=== PATIENT | female | born 1950 | race Caucasian/White ===

== ENCOUNTER 2016-11-21 13:10 | Outpatient (CLI) | payer MEDICARE ==
--- NOTE | 2016-11-21 16:04 | NM ---
NUCLEAR MEDICINE MUGA SCAN: RADIOPHARMACEUTICAL: 28.3 mCi of Technetium 99m tagged RBC IV. COMPARISON: No prior comparison. CLINICAL HISTORY: Malignant neoplasm of upper outer quadrant of right female breast. FINDINGS: Scintigraphic imaging of the cardiac chambers reveals a left ventricular ejection fraction of 58.9%. The left ventricular contractility is demonstrated between diastolic and systolic imaging. IMPRESSION: Calculated left ventricular ejection fraction of 58.9%. POS: [place]
[2016-11-21] MEDS ORDERED: Heparin 1,000 UNITS/ML VIAL ONE (16:27)
== END 2016-11-21 13:11 | disposition home or self-care (01) ==
LOC: NM 13:10
PROVIDERS: ATTEND Internal Medicine Medical Oncology
DX: Z51.11 Encounter for antineoplastic chemotherapy (principal); C50.411 Malignant neoplasm of upper-outer quadrant of right female breast
CPT/HCPCS: 78472; A9604; J1644

== ENCOUNTER 2017-01-18 14:09 | Day surgery (SDC) | payer MEDICARE ==
[2017-01-18] MEDS ORDERED: Acetaminophen 500 MG TAB PO SCH (14:30)
[2017-01-18] MEDS ORDERED: diphenhydrAMINE 25 MG CAP PO SCH (14:30)
[2017-01-18] MEDS ORDERED: Sodium Chloride 0.9% 20 ML ONE (14:52)
[2017-01-18 20:29] VITALS: BP 164/72; TEMP 97
[2017-01-18 21:05] LABS: Band 21 % (5-11); Hematocrit 30.9 % (36.0-47.0); Mean Platelet Volume 7.3 fL (7.4-10.4); Neutrophil 53 % (42-75); Red Blood Cell (RBC) Count 3.23 mill/uL (4.20-5.40); White Blood Cell (WBC) Count 20.3 thou/uL (4.8-10.8)
== END 2017-01-18 20:46 | disposition home or self-care (01) ==
LOC: ONC/OP 14:09
PROVIDERS: ATTEND Internal Medicine Medical Oncology
PROC: 30233N1 Transfusion of Nonautologous Red Blood Cells into Peripheral Vein, Percutaneous Approach (ICD-10-PCS; principal; 2017-01-18)
DX: D64.9 Anemia, unspecified (principal); C50.411 Malignant neoplasm of upper-outer quadrant of right female breast; Z88.8 Allergy status to other drugs, medicaments and biological substances
CPT/HCPCS: 36430; 80053; 82248; 83615; 84100; 84550; 85025; 86850; 86900; 86901; A4216; J1642; P9016

== ENCOUNTER 2017-02-07 11:59 | Day surgery (SDC) | payer MEDICARE ==
[2017-02-07] MEDS ORDERED: diphenhydrAMINE 25 MG CAP PO SCH (12:45)
[2017-02-07] MEDS ORDERED: Acetaminophen 500 MG TAB PO SCH (12:45)
[2017-02-07] MEDS ORDERED: Sodium Chloride 0.9% 20 ML ONE (12:51)
[2017-02-07 17:55] VITALS: BP 157/84; TEMP 98
[2017-02-07 19:16] LABS: Anisocytosis SLIGHT = 6-15 cells (100X) (0-5/hpf); Band 7 % (5-11); Hematocrit 29.6 % (36.0-47.0); Mean Platelet Volume 8.4 fL (7.4-10.4); Neutrophil 6 % (42-75); Red Blood Cell (RBC) Count 3.11 mill/uL (4.20-5.40); Toxic Granulation SLIGHT; White Blood Cell (WBC) Count 1.9 thou/uL (4.8-10.8)
== END 2017-02-07 17:55 | disposition home or self-care (01) ==
LOC: ONC/OP 11:59
PROVIDERS: ATTEND Internal Medicine Medical Oncology
PROC: 30233N1 Transfusion of Nonautologous Red Blood Cells into Peripheral Vein, Percutaneous Approach (ICD-10-PCS; principal; 2017-02-07)
DX: D64.9 Anemia, unspecified (principal); D69.59 Other secondary thrombocytopenia; C50.411 Malignant neoplasm of upper-outer quadrant of right female breast; Z88.8 Allergy status to other drugs, medicaments and biological substances
CPT/HCPCS: 36430; 85025; 86850; 86900; 86901; A4216; J1642; P9016

== ENCOUNTER 2017-02-23 17:22 | Inpatient (IN) | payer MEDICARE ==
[~2017-02-23 17:22] MED LIST: ISOVUE-370 76%-LOCM 1 ML ONE; Lidocaine 1% PF 5 ML VIAL ONE; PHENYLEPHRINE-NS 100 MCG/ML 10 ML SYRINGE ONE; Propofol 200 MG/20 ML VIAL ONE
[2017-02-23 18:26] LABS: Hemoglobin 6.2 g/dL (12.0-16.0); Mean Corpuscular HGB CONC 32.8 g/dL (32.0-36.0); Mean Corpuscular Hemoglobin 31.5 pg (27.0-31.0); Mean Corpuscular Volume 95.9 fl (81.0-99.0); Mean Platelet Volume 7.1 fL (7.4-10.4); Platelet Count 317 thou/uL (130-400); RBC Distribution Width 15.1 % (11.5-14.5); Red Blood Cell (RBC) Count 1.97 mill/uL (4.20-5.40); White Blood Cell (WBC) Count 47.6 thou/uL (4.8-10.8)
[2017-02-23 18:47] LABS: Anisocytosis SLIGHT = 6-15 cells (100X) (0-5/hpf); Band 2 % (5-11); Hypochromia SLIGHT = 6-15 cells (100X) (0-5/hpf); Lymphocytes 2 % (21-51); MDiff Complete? YES; Metamyelocyte 2 % (0-0); Monocytes 1 % (0-10); Myelocyte 1 % (0-0); Neutrophil 92 % (42-75); PLT Morphology Comment Appears Adequate
[2017-02-23 18:50] LABS: ALT (SGPT) 10 U/L (8-55); AST (SGOT) 20 U/L (5-34); Albumin 2.6 g/dL (3.4-4.8); Alkaline Phosphatase 88 U/L (40-150); Anion Gap 13 mmol/L (10-20); BUN (Urea Nitrogen) 53 mg/dL (9.8-20.1); Bilirubin, Total 0.3 mg/dL (0.2-1.2); Calc. Creatinine Clearance 0 mL/min (70-130); Calcium 6.8 mg/dL (7.8-10.44); Carbon Dioxide 22 mmol/L (23-31); Chloride 105 mmol/L (98-107); Estimated GFR-MDRD 53; Globulin 1.9 g/dL (2.4-3.5); Glucose 125 mg/dL (80-115); Lipase 8 U/L (8-78); Potassium 3.7 mmol/L (3.5-5.1); Protein, Total 4.5 g/dL (6.0-8.3); Sodium 136 mmol/L (136-145)
[2017-02-23] MEDS ORDERED: Vancomycin HCl 25 MG/ML Oral PO SCH (19:45)
[2017-02-23 19:52] LABS: CKMB 0.7 ng/mL (0-6.6); Troponin I Less than 0.010 ng/mL (< 0.028)
[2017-02-23] MEDS ORDERED: Lorazepam 2 MG/ML VIAL ONE (20:40)
[2017-02-23 20:55] LABS: Hemoglobin 5.5 g/dL (12.0-16.0); Mean Corpuscular Hemoglobin 31.3 pg (27.0-31.0); Mean Corpuscular Volume 94.8 fl (81.0-99.0); Mean Platelet Volume 7.3 fL (7.4-10.4); Platelet Count 260 thou/uL (130-400); Red Blood Cell (RBC) Count 1.75 mill/uL (4.20-5.40)
[2017-02-23 20:59] LABS: Band 10 % (5-11); Lymphocytes 3 % (21-51); MDiff Complete? YES; Metamyelocyte 1 % (0-0); Neutrophil 86 % (42-75); PLT Morphology Comment Appears Adequate; Toxic Granulation SLIGHT
[2017-02-23] MEDS ORDERED: Magnesium Sulfate 2 GM/NS 0.9% 50 ML BAG ONE (21:11)
[2017-02-23] MEDS ORDERED: Pantoprazole 40 MG VIAL ONE (21:11)
[2017-02-23] MEDS ORDERED: Calcium Gluc 4.6 MEQ/10 ML (100 MG/ML) ONE (21:11)
--- NOTE | 2017-02-23 21:50 | RAD ---
CHEST ONE VIEW 02/23/17 HISTORY: Blood in stool. COMPARISON: None. FINDINGS: Port-A-Cath is in place with the tip at the inferior SVC. The lungs are clear. No pneumothorax or eff usion. IMPRESSION: No acute intrathoracic abnormality. POS: [facility]
--- NOTE | 2017-02-23 21:54 | CT ---
CT ANGIOGRAM ABDOMEN AND PELVIS WITH CONTRAST: HISTORY: Colitis. COMPARISON: None. TECHNIQUE: CT angiogram abdomen and pelvis performed after the intravenous administration of contrast, with 3D r endering provided. FINDINGS: Mild atelectasis in the lung bases. No pericardial effusion. Along the lateral wall of the second portion of the duodenum there appears to be either an area of an giodysplasia or hemorrhage. Ingested debris is felt less likely, as this is along the nondependent w all. Calcified granulomas are present in the spleen. The liver and gallbladder appear unremarkable. There is unformed stool throughout the colon, suggesting diarrhea. There is mild submucosal edema of the transverse colon and ascending colon, suggesting colitis. No significant peripancreatic edema. No hydronephrosis. The superior mesenteric artery and the celiac trunk are both patent. There is focal saccular ectasia of the infrarenal abdominal aorta, which measures up to 2.5 cm in size, which is nearly completely t hrombosed. This only mildly narrows the [place] lumen. This is for a craniocaudad length of 2.5 cm. The iliac arteries are without aneurysm. Moderate facet arthropathy of the lower lumbar spine. No compression fracture. IMPRESSION: 1. Mild ascending and transverse colon colitis. 2. Focal infrarenal abdominal aortic ectasia, measuring up to 2.5 cm, with thrombosis of the ectatic component. No flow-limiting stenosis. 3. Likely focal area of angiodysplasia of the second portion of the duodenum, as there is a curvilin ear area of enhancement within the wall of the duodenum. Non emergent GI consultation and upper endoscopy may be helpful. POS: [facility]
[2017-02-23 22:17] LABS: Lactic Acid 2.4 mmol/L (0.5-2.2)
[2017-02-23 23:18] LABS: INR-International Normal Ratio 1.4; PTT 23.2 SEC (22.9-36.1); Prothrombin Time 17.8 SEC (12.0-14.7)
[2017-02-23] MEDS ORDERED: metroNIDAZOLE 500 MG in Premix Bag 1 BAG IVPB SCH (23:30)
[2017-02-23] MEDS ORDERED: Diprivan 60 ML ONE (23:53)
[2017-02-24] MEDS ORDERED: Fentanyl 100 MCG/2 ML VIAL ONE (00:50)
[2017-02-24 01:36] LABS: Mean Corpuscular HGB CONC 34.2 g/dL (32.0-36.0); Mean Corpuscular Hemoglobin 31.5 pg (27.0-31.0); Mean Platelet Volume 7.1 fL (7.4-10.4); Platelet Count 105 thou/uL (130-400); RBC Distribution Width 13.4 % (11.5-14.5); Red Blood Cell (RBC) Count 2.22 mill/uL (4.20-5.40); White Blood Cell (WBC) Count 22.8 thou/uL (4.8-10.8)
[2017-02-24 01:45] LABS: Band 20 % (5-11); Lymphocytes 2 % (21-51); MDiff Complete? YES; Metamyelocyte 2 % (0-0); Neutrophil 76 % (42-75); PLT Morphology Comment Appears Decreased
[2017-02-24] MEDS ORDERED: Morphine 4 MG/ML VIAL SLOW IVP PRN (03:20)
--- NOTE | 2017-02-24 03:45 | CON ---
DATE OF CONSULTATION: 02/23/2017 HISTORY OF PRESENT ILLNESS: The patient is a 67-year-old female who was diagnosed with barbara ast cancer several months ago and underwent a mastectomy. She recently started chemotherapy and was on her last cycle of chemotherapy and began having some mild blood per rectum. She denies any abdomi nal pain, nausea, vomiting. She denies any weight loss. In the ER, the patient had an episode of br adycardia and has received multiple units of blood. PAST MEDICAL HISTORY: Significant for mastectomy for breast cancer and ongoing chemotherapy. PAST SURGICAL HISTORY: Includes a hysterectomy. ALLERGIES: METAXALONE, SKELAXIN. HOME MEDICATIONS: Patient provided a list, on this list included diclofenac. SOCIAL HISTORY: She does not smoke or drink. FAMILY HISTORY: Negative. REVIEW OF SYSTEMS: Unobtainable. PHYSICAL EXAMINATION: GENERAL: Shows a pale white female in no acute distress. VITAL SIGNS: Stable. She is afebrile. HEENT: Unremarkable. NECK: Supple. CHEST: Clear. CARDIOVASCULAR: Regular rate and rhythm. ABDOMEN: Soft, nontender, without organomegaly or masses. Bowel sounds are present and normoactive. RECTAL: Deferred. EXTREMITIES: Normal. NEUROLOGIC: Nonfocal. LABORATORY: Shows a white blood cell count of 51.0, hemoglobin of 5.5, hematocrit of 16.6, hemoglobi n on 02/07/2017 showed a hemoglobin was 9.7, CO2 was 22, BUN 53, creatinine 1.03, glucose 125, calciu m 6.8, total protein 4.5, albumin 2.6. CTA was done and showed mild ascending and transverse colon c olitis, focal infrarenal abdominal aortic ectasia measuring 2.5 cm with some thrombosis, likely focal area of angiodysplasias of the second portion of the duodenum as there is curvilinear area of enhanc ement within the wall of the duodenum. ASSESSMENT: 1. Upper gastrointestinal bleed - suspect diclofenac related ulcer. 2. Breast cancer, undergoing chemotherapy. 3. Anemia secondary to gastrointestinal blood loss. RECOMMENDATIONS: 1. Serial H&H. 2. IV PPI. 3. Emergent EGD.
[2017-02-24] MEDS ORDERED: Acetaminophen 650 MG Suppository PR PRN (03:49)
[2017-02-24] MEDS ORDERED: Acetaminophen 325 MG TAB PO PRN (03:49)
[2017-02-24] MEDS: Morphine 4 MG/ML VIAL SLOW IVP PRN ×3 (04:03→12:13)
[2017-02-24] MEDS: Sodium Chloride 0.9% 1,000 ML IV SCH ×2 (04:33→19:03)
--- NOTE | 2017-02-24 04:37 | OP ---
PREOPERATIVE DIAGNOSIS: Gastrointestinal bleeding. PROCEDURE: After informed consent was obtained, the patient was placed in the left lateral decubitus position. Anesthesia was administered per the Anesthesia Department. Forward-viewing endoscope was inserted into the esophagus under direct visualization with ease and passed to the second portion of the duodenum with ease. Second portion of the duodenum was normal. At the junctions of the first a nd second portion of the duodenum, active bleeding area was noted. The exact area that was bleeding could not be elucidated, but there was brisk bright red blood. This re-accumulated on aspiration, th e therapeutic gastroscope was tried, the colonoscope was tried, all without success. Initially on lo oking at the duodenal bulb, there was an ulcer. This ulcer had no visible vessels or active bleeding . The pylorus, antrum, body, fundus, and cardia were normal. Retroflexion in the stomach was normal . The esophagus was normal throughout. ASSESSMENT: 1. Actively bleeding area at the junction of the first and second portion of the duodenum, most like ly ulcer. 2. Otherwise normal esophagogastroduodenoscopy. RECOMMENDATION: Surgical opinion.
[2017-02-24 05:19] LABS: Hemoglobin 9.8 g/dL (12.0-16.0)
[2017-02-24 05:21] LABS: Hemoglobin 9.8 g/dL (12.0-16.0)
--- NOTE | 2017-02-24 05:24 | HP ---
PRIMARY CARE PHYSICIAN: zEe López M.D. CHIEF COMPLAINT: Bloody stools. HISTORY OF PRESENT ILLNESS: Ms. Elias is a pleasant 67-year-old lady, who was seen at [facility] on 02/24/2017, following surgery. She is currently sleepy but arousable, unable to provide any history or review of systems. History was obtained from discussion with the emergency room physician as well as review of medical records. She presented to the emergency room yesterday, complaining of diarrhea, weakness , and dizziness that started one hour prior to her arrival at the emergency room. She also reported blood in her stool. She did not have any fever. She is a chemotherapy patient, last chemotherapy 3 days ago. She reports nausea after getting chemotherapy. She also had on and off diarrhea after starting chemo. She was hospitalized around [facility] in 2017 for kidney infection. REVIEW OF SYSTEMS: Could not be completed because of the patient's current sedated status. PAST MEDICAL HISTORY: Significant for breast cancer, dyslipidemia, and possible coronary artery disease. PAST SURGICAL HISTORY: Significant for right lumpectomy, decompression of syrinx x2 and hysterectomy. PSYCHIATRIC HISTORY: Significant for anxiety and depression. SOCIAL HISTORY: No history of tobacco use, alcohol use or recreational drug use. FAMILY HISTORY: Could not be obtained due to sedated status. CODE STATUS: I could not discuss her code status because of her sedated status. This will need to be addressed in the morning. ALLERGIES: SKELAXIN and METAXALONE. CURRENT MEDICATIONS: Atorvastatin 10 mg daily, baclofen 10 mg daily, carvedilol 3.125 mg two times a day, levothyroxine 137 mcg daily, Lexapro 10 mg daily, potassium chloride 20 mEq daily. PHYSICAL EXAMINATION: GENERAL: Ms. Elias is sleeping but arousable. VITAL SIGNS: Blood pressure is 163/90, pulse is 99. She is breathing at rate of 31, and saturating 96% on room air. EYES: No scleral icterus, conjunctival pallor present. ENT: Moist mucosal membranes, no oropharyngeal erythema or exudates. NECK: Supple, nontender, trachea is midline. RESPIRATORY: Accessory muscles of breathing are not active. Chest wall movements are symmetric bilaterally. LUNGS: Clear to auscultation without wheeze, rhonchi, or crepitations. CARDIOVASCULAR: S1 and S2 are heard, tachycardic and regular. Peripheral pulses are palpable. No carotid bruit, no pericardial rub. ABDOMEN: Soft, dressings over surgical sites, surgical drain present. No hepatomegaly, no splenomegaly, sluggish bowel sounds. NEUROLOGIC: Full neurologic examination not possible secondary to the patient' s non-cooperation. Pupils equal and reactive to light. No facial droop. Deep tendon reflexes are 2+, plantar reflexes downgoing bilaterally. PSYCHIATRIC: Normal mood, oriented to person, unable to assess orientation to place or time. SKIN: No rashes or subcutaneous nodules. She has a chemotherapy port over the right chest wall. LYMPHATIC: No cervical lymphadenopathy. LABORATORY DATA AND IMAGING: Ms. Elias labs and investigations were reviewed. I reviewed her electrocardiogram, which showed normal sinus rhythm, no ST changes, suggestion acute coronary syndrome, this electrocardiogram was from yesterday evening. Currently, court monitor shows sinus tachycardia. I also reviewed her chest x-ray, which did not show any pulmonary infiltrates. She had CT angiogram of the abdomen and pelvis, which showed mild ascending and transverse colon colitis, focal intrarenal abdominal aortic ectasia, likely focal area of angiodysplasia of the second portion of the duodenum. Laboratory investigation show white count of 22,800, decreased from 47,600 yesterday, hemoglobin 7.0, up from 5.5 yesterday; platelet count 105,000, down from 260,000 yesterday, INR 1.4, lactic acid 2.4, decreased from 3.3 yesterday, normal sodium, normal potassium, elevated blood urine nitrogen of 53, normal creatinine, normal phosphorous, decreased albumin of 2.6, normal lipase, normal corrected calcium for albumin of 7.9 and normal troponin I. ASSESSMENT AND PLAN: Ms. Elias is a 67-year-old lady, who was seen at [facility] on 02/24/2017. Her problem list includes: 1. Gastrointestinal bleed: Ms. Elias was taken for emergency surgery for repair of duodenal ulcer in the second part of duodenum. She is now being admitted to critical care unit for further management. She has received 6 units of packed red blood cells and 5 units of fresh frozen plasma. We will monitor in the CCU for now. We will recheck her hemoglobin. 2. Leukocytosis: Etiology is unclear, white count is trending down now. We will recheck CBC. 3. Anemia of acute blood loss: As mentioned, she has received 6 units of packed red blood cells. We will check hemoglobin level. 4. Thrombocytopenia: Platelet count was normal yesterday, but appears to be trending down. We will repeat platelet count. 5. Breast cancer: Given her history of chemotherapy as well as blood count abnormalities, we will consult Oncology service for opinion and help with management. Many thanks for allowing me to participate in your patient's care. Please feel free to contact me with any questions or concerns. LEVEL OF RISK: High. LEVEL OF COMPLEXITY: High. MTDD
[2017-02-24] MEDS: Acetaminophen 1,000 MG in Premix Bag 1 BAG IVPB SCH ×4 (07:38→23:35)
[2017-02-24 08:11] LABS: Anion Gap 11 mmol/L (10-20); BUN (Urea Nitrogen) 32 mg/dL (9.8-20.1); Calc. Creatinine Clearance 62 mL/min (70-130); Calcium 6.4 mg/dL (7.8-10.44); Carbon Dioxide 21 mmol/L (23-31); Chloride 108 mmol/L (98-107); Estimated GFR-MDRD 65; Glucose 123 mg/dL (80-115); Magnesium 1.3 mg/dL (1.6-2.6); Phosphorus 2.3 mg/dL (2.3-4.7); Potassium 3.6 mmol/L (3.5-5.1); Sodium 136 mmol/L (136-145)
--- NOTE | 2017-02-24 08:56 | RAD ---
FRONTAL VIEW ABDOMEN: INDICATION: Feeding tube placement. FINDINGS: There is an enteric catheter which traverses to the medial left mid abdomen. An additional feeding t ube with distal metallic stylette is seen with metallic stylette overlying the midline low abdomen. Catheter tubing overlies the right abdomen from a right lateral approach, incompletely visualized. T here is air distention of the bowel. IMPRESSION: Enteric catheters, as above, as well as overlying tubing at the right abdomen. POS: [facility]
[2017-02-24] MEDS ORDERED: Prevnar 13-Val Conj/PF 0.5 ML SYRINGE IM ONE (09:00)
[2017-02-24] MEDS ORDERED: FLU VACC TS2017-18 (>65YR) 0.5 ML SYRINGE IM ONE (09:00)
[2017-02-24] MEDS ORDERED: Lidocaine 1% PF 5 ML VIAL ONE (09:17)
[2017-02-24] MEDS ORDERED: Propofol 200 MG/20 ML VIAL ONE (09:17)
[2017-02-24] MEDS ORDERED: Succinylcholine Chloride 20 MG/ML 10 ml SYRINGE FS ONE (09:17)
[2017-02-24] MEDS ORDERED: Dexamethasone 20 MG/5 ML VIAL ONE (09:17)
[2017-02-24] MEDS ORDERED: PHENYLEPHRINE-NS 100 MCG/ML 10 ML SYRINGE ONE (09:17)
[2017-02-24] MEDS ORDERED: Glycopyrrolate 0.2 MG/ML 5 ML SYRINGE ONE (09:17)
[2017-02-24 09:31] LABS: Band 15 % (5-11); Lymphocytes 6 % (21-51); MDiff Complete? YES; Mean Corpuscular HGB CONC 33.7 g/dL (32.0-36.0); Mean Corpuscular Hemoglobin 31.2 pg (27.0-31.0); Mean Corpuscular Volume 92.6 fl (81.0-99.0); Mean Platelet Volume 7.9 fL (7.4-10.4); Metamyelocyte 6 % (0-0); Monocytes 1 % (0-10); Neutrophil 72 % (42-75); PLT Morphology Comment Appears Decreased; Platelet Count 95 thou/uL (130-400); RBC Distribution Width 13.2 % (11.5-14.5); Red Blood Cell (RBC) Count 3.18 mill/uL (4.20-5.40); White Blood Cell (WBC) Count 20.1 thou/uL (4.8-10.8)
[2017-02-24] MEDS: Pantoprazole 80 MG in Sodium Chloride 0.9% 100 ML IVP SCH (12:18)
--- NOTE | 2017-02-24 13:51 | PDOC.EVN ---
Event Note - Event Note Event Note: Patient seen and examined, family at bedside, states she is not having any more bleeding for now. Will monitor closely in ICU for now and make medical changes as appropriate.
[2017-02-24] MEDS ORDERED: HYDROmorphone 10 mg/100 ml CADD IVPB PRN (15:29)
[2017-02-24] MEDS ORDERED: diphenhydrAMINE 25 MG CAP PO PRN (15:29)
[2017-02-24] MEDS ORDERED: diphenhydrAMINE 50 MG/ML VIAL IVP PRN (15:29)
[2017-02-24] MEDS ORDERED: diphenhydrAMINE 50 MG/ML VIAL IM PRN (15:29)
[2017-02-24] MEDS ORDERED: Naloxone HCl 0.4 mg/ml Vial IV PRN (15:29)
[2017-02-24] MEDS ORDERED: Promethazine HCl 25 MG/ML VIAL IM PRN (15:29)
[2017-02-24] MEDS ORDERED: Zolpidem Tartrate 5 MG TAB PO PRN (15:29)
[2017-02-24] MEDS ORDERED: Ondansetron HCl/PF 4 MG/2 ML Vial IVP PRN (15:29)
[2017-02-24] MEDS ORDERED: Communication Order-Pharmacy FS SCH (15:30)
--- NOTE | 2017-02-24 15:53 | EKG ---
Test Reason : Blood Pressure : / mmHG Vent. Rate : 088 BPM Atrial Rate : 088 BPM P-R Int : 110 ms QRS Dur : 100 ms QT Int : 376 ms P-R-T Axes : 021 -19 055 degrees QTc Int : 454 ms Sinus rhythm with short [place] Minimal voltage criteria for LVH, may be normal variant Borderline ECG Confirmed by VALERIE SALVADOR ([id number]), editorial writer LILIANA LEVIN ([id number]) on 02/24/2017 3:53:18 PM Referred By: Confirmed By:VALERIE SALVADOR
--- NOTE | 2017-02-24 16:16 | CON ---
DATE OF CONSULTATION: 02/24/2017 REASON FOR CONSULTATION: History of HER2-positive breast cancer. HISTORY OF PRESENT ILLNESS: The patient is a 67-year-old woman known to our group with a history of T2 N0 M0 estrogen and progesterone receptor negative, HER-2 positive stage 2A invasive ductal carcino ma for which she underwent lumpectomy and node sampling in the fall. She has now completed 5 cycles of TCH chemotherapy, the most recent cycle delivered on 02/21/2017. She has had some gastrointestina l complications, primarily diarrhea and nausea, during her postoperative adjuvant chemotherapy, but n o history of a definite gastrointestinal bleeding. On the day of admission, she developed some dark stools and marked dizziness, prompting emergency room visit. She was found to be experiencing upper gastrointestinal hemorrhage and an upper gastrointestinal endoscopy performed by Dr. Morgan johnson rmed a bleeding duodenal ulcer. Endoscopic cautery was not able to stop the bleeding and, therefore, she went to urgent exploratory laparotomy performed by Dr. Velarde. She is now doing well. A bleedin g duodenal ulcer was oversewn. She is hemodynamically stable. I am asked to provide my recommendati ons regarding the breast malignancy. ALLERGIES: She describes sensitivity to Skelaxin. MEDICATIONS: She is on diclofenac, levothyroxine, Lexapro, Lomotil, promethazine, potassium, Coreg, atorvastatin, and baclofen. PAST MEDICAL HISTORY: There is a history of rheumatoid arthritis for which she has taken Orencia in the past. There is also history of depression, hypothyroidism, and question of syringomyelia. PAST SURGICAL HISTORY: The patient underwent the right breast partial mastectomy in 10/2016. She sneed d coronary artery catheterization in 03/2016. She has syringomyelia decompression surgery x2 in the past. She has undergone bladder suspension and MALACHI-BSO in 1976. FAMILY HISTORY: There is a history of lung cancer in her mother. A brother had a history of colon c ancer. PERSONAL AND SOCIAL HISTORY: Patient has 2 children and is , living locally. A daughter is i nvolved with her care as well. She has never smoked and does not drink excessively. 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 She has had no occupational exposure. REVIEW OF SYSTEMS: Except as mentioned in the history of present illness, she denies significant car diopulmonary, GI, , musculoskeletal, or neurological complaints. PHYSICAL EXAMINATION: VITAL SIGNS: Temperature 97.8, pulse 95 and regular, respirations 16, blood pressure 140/82. GENERAL: The patient is a well-developed and well-nourished woman in no acute distress. She is aler t, oriented, and cooperative. She is appropriate in conversation and in good spirits. HEENT: The extraocular movements are intact. Pupils equal, round, and reactive to light. NECK: Supple. LUNGS: Clear. CARDIOVASCULAR: Regular rate and rhythm without murmur, rub, gallop or click. ABDOMEN: No tenderness, organomegaly, masses, bruits or ascites. EXTREMITIES: No clubbing, cyanosis or edema. SKIN: Normal. LYMPH: No adenopathy. MUSCULOSKELETAL: No arthritis. NEUROLOGIC: No focal findings. Cranial nerves II-XII grossly intact. LABORATORY: White blood cell count 20.1 with 72 neutrophils, 15 bands. The hemoglobin is 9.[address] atelet count 95,000. Chemistries show sodium 136, potassium 3.6, chloride 108, and bicarbonate 21. The creatinine is 0.86 and BUN 32. A random blood sugar is 123. The albumin is 2.6, but liver funct ion is otherwise normal. IMPRESSION: 1. Upper gastrointestinal hemorrhage secondary to bleeding duodenal ulcer, status post exploratory l aparotomy. 2. T2 N0 M0, ER/WV negative, HER-2 positive breast cancer status post 5 cycles of TCH chemotherapy, the most recent cycle being delivered on 02/21/2017 with Neulasta support. RECOMMENDATIONS: Certainly, postoperative care needs to continue without regard to her history of br east cancer. Her breast malignancy has an excellent prognosis. She did receive Neulasta support and , therefore, the white blood cell count may remain elevated despite there being no evidence of infect ion. I do not expect his platelet count get dangerously low, but we will monitor the platelet count as chemotherapy was delivered only 3 days previously. Thanks very much for allowing me to provide my recommendations. We will follow with you.
--- NOTE | 2017-02-24 18:51 | OP ---
DATE OF PROCEDURE: 02/24/2017 PREOPERATIVE DIAGNOSIS: Bleeding duodenal ulcer. POSTOPERATIVE DIAGNOSIS: Bleeding duodenal ulcer involving the second portion of the duodenum. OPERATIONS PERFORMED: 1. Exploratory laparotomy. 2. Oversew of bleeding duodenal ulcer. 3. Placement of feeding nasojejunal tube. SURGEON: Juan C Velarde D.O. ANESTHESIA: General endotracheal. ESTIMATED BLOOD LOSS: 250 mL. FLUIDS GIVEN: 1000 mL crystalloids, 3 units of fresh-frozen plasma, 1 unit of platelets, and 1 unit packed red blood cell. SPONGE AND INSTRUMENT COUNT: Certified as correct x2. COMPLICATIONS: None apparent at time of operation. INDICATIONS FOR OPERATION: This is a 67-year-old woman who presented with acute hemorrhagic shock se condary to upper gastrointestinal hemorrhage. The patient underwent an EGD finding bleeding source, which appears to involve the second portion of the duodenum. The ulcer base itself was not visualize d by the Endoscopist. Pulsatile blood is noted; however, the patient is requiring a massive transfus ion protocol in place. Decision is made therefore to bring the patient to the operating room emergen tly for exploration. Findings are consistent with bleeding duodenal ulcer in the anterior aspect of the second portion of the duodenum. DESCRIPTION OF OPERATION: Informed consent obtained from the patient's daughter. Patient was velia t to the operating room and placed in supine position. Following general anesthesia, Willis catheter was inserted and placed to bedside drain. Nasogastric tube was inserted and placed to wall suction. Abdomen is sterilely prepped and draped in the usual fashion. A supraumbilical midline incision was made using #10 scalpel. Incision was carried through subcutaneous tissues maintaining hemostasis us ing thermocautery. Fascia is incised along the line of the incision using cautery exposing the perit oneum beneath, which is grasped x2 with hemostasis. Peritoneal cavity was sharply entered using Monroe enbaum scissors. Incision was then extended superiorly and inferiorly. Bookwalter retractor was put in place to gain exposure. The stomach was evaluated and it was not filled with blood. The previous nasogastric tube was palpated within the gastric lumen. We quickly run the small bowel from the Lig ament of Treitz down to terminal ileum. It was evident that the bleeding source was proximal. The r ight colon was mobilized medially to allow access to the second portion of the duodenum. I then made a vertical incision over the anterior aspect of the duodenum proximal to the junction of the first p ortion and second portion of the duodenum. This was accomplished using cautery. Large amount of arely ts was readily evacuated. A pulsatile bleed is noted in the anterior medial aspect of incision. Thi s was secured using one [id number] stitch of 2-0 Silk. The duodenal lumen was then evacuated of blood. I placed a lip of inside the lumen and observed this for few minutes. No further acti ve bleeding was noted. At this juncture, a feeding nasojejunal tube was inserted by Anesthesia, tip of which was palpated by myself within the gastric lumen. I then manipulated the tip of this cathete r into proximal small bowel without resistance. Finding no other pathology, exploration is terminate d. The duodenotomy is closed in two layers. The inner layer was closed horizontally using interrupt ed sutures of 3-0 Silk in a modified fashion. The suture line was then imbricated using interr upted sutures of 3-0 Silk in a Lembert fashion. Abdomen was copiously irrigated, cleared with saline solution. A lip of omentum was mobilized and secured repair using interrupted sutures of 3-0 Silk. A #19 Sean drain was introduced through the peritoneal cavity, tip of this was placed in a subhepat ic space adjacent to the repair. This was allowed to exit the abdominal cavity through a separate st ab incision. The drain was secure to intraabdominal wall using 2-0 Silk suture. All sponge and inst ruments were removed and accounted for. Small bowel was returned to normal anatomic location. Oment um was drawn over the remainder of the viscera. Fascia is approximated in midline using running stit ch of #1 single stranded PDS. Subcutaneous tissue is irrigated clear with saline solution perfecting hemostasis using thermocautery. The skin incision is closed using smitha. Sterile dressing was ap plied. The patient tolerated this operation without any apparent complication and was returned to [facility] intensive care unit in critical, but stable condition.
--- NOTE | 2017-02-24 18:58 | PRG ---
DATE OF SERVICE: 02/24/2017 SUBJECTIVE: She is doing well. She is feeling good. She states her bed is comfortable. She is sor e from her surgery. OBJECTIVE: VITAL SIGNS: Temperature is 97.8, pulse 90, blood pressure 142/81, respiratory rate 13. CHEST: Clear. CARDIOVASCULAR: Regular rate and rhythm. ABDOMEN: Bandaged and tender. EXTREMITIES: Normal. LABORATORY DATA: Shows a white blood cell count of 20.1, hemoglobin 9.8, hematocrit 28.9, platelet c ount 95,000. Chemistries significant for chloride 108, CO2 21, BUN 32, glucose 123, calcium 64, tota l bilirubin 1.3. ASSESSMENT: 1. Upper gastrointestinal bleed secondary to duodenal ulcer, not amenable to endoscopic treatment. 2. Anemia secondary to gastrointestinal blood loss. 3. Breast cancer, undergoing chemotherapy. RECOMMENDATIONS: 1. Continue PPI. 2. Serial H&H. 3. Begin diet per deferred to surgery.
--- NOTE | 2017-02-24 23:45 | PRG ---
DATE OF SERVICE: 02/24/2017 SUBJECTIVE: Gerry Elias is a 67-year-old female postop day 0, status post exploratory laparotomy in oversewing of bleeding duodenal ulcer as well as placement of nasojejunal tube. Patient has remai beti hemodynamically stable throughout the course of the day. Her H&H appears to have stabilized. Ronn corrales denies any flatus or bowel movement at this time. She is tolerating tube feeds. 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 Pain has improved since that time. She was e valuated by Dr. Velarde this evening. She vocalized no further complaints. OBJECTIVE: VITAL SIGNS: Reviewed and stable. Patient is afebrile. Resting in bed in no acute distress. NG tu be is in place. Breathing is nonlabored. ABDOMEN: Soft and appropriate and with generalized tenderness. There are no signs of guarding, rigi dity, or peritonitis. NEUROLOGIC: No focal deficit is noted. ASSESSMENT: Acute blood loss anemia secondary to bleeding ulcer. PLAN: Transfer patient to general surgical floor. Continue tube feeds as ordered. Await return of bowel function. Care is otherwise ordered. Continue to monitor.
[2017-02-25] MEDS: Pantoprazole 80 MG in Sodium Chloride 0.9% 100 ML IVP SCH ×3 (01:48→22:36)
[2017-02-25 06:21] LABS: Anion Gap 6 mmol/L (10-20); BUN (Urea Nitrogen) 19 mg/dL (9.8-20.1); Calc. Creatinine Clearance 65 mL/min (70-130); Calcium 6.9 mg/dL (7.8-10.44); Carbon Dioxide 28 mmol/L (23-31); Chloride 106 mmol/L (98-107); Estimated GFR-MDRD 75; Glucose 86 mg/dL (80-115); Potassium 3.3 mmol/L (3.5-5.1); Sodium 137 mmol/L (136-145)
[2017-02-25] MEDS: Acetaminophen 1,000 MG in Premix Bag 1 BAG IVPB SCH (06:31)
[2017-02-25 06:33] LABS: Band 11 % (5-11); Hemoglobin 8.4 g/dL (12.0-16.0); Lymphocytes 4 % (21-51); MDiff Complete? YES; Mean Corpuscular HGB CONC 33.8 g/dL (32.0-36.0); Mean Corpuscular Hemoglobin 31.4 pg (27.0-31.0); Mean Corpuscular Volume 92.8 fl (81.0-99.0); Mean Platelet Volume 8.2 fL (7.4-10.4); Metamyelocyte 6 % (0-0); Monocytes 2 % (0-10); Neutrophil 77 % (42-75); PLT Morphology Comment Appears Decreased; Platelet Count 64 thou/uL (130-400); RBC Distribution Width 13.7 % (11.5-14.5); Red Blood Cell (RBC) Count 2.69 mill/uL (4.20-5.40); White Blood Cell (WBC) Count 13.1 thou/uL (4.8-10.8)
[2017-02-25] MEDS: Sodium Chloride 0.9% 1,000 ML IV SCH ×3 (06:58→21:16)
--- NOTE | 2017-02-25 11:13 | PRG ---
DATE OF SERVICE: 02/25/2017 SUBJECTIVE: The patient is feeling about the same as yesterday. She is having some abdominal sorene ss. She is having no nausea or vomiting. She is not having any flatus or bowel movements. OBJECTIVE: VITAL SIGNS: Temperature 97.9, pulse 83, respiratory rate 19, blood pressure 95/65. CHEST: Clear. CARDIOVASCULAR: Regular rate and rhythm. ABDOMEN: Tender diffusely. LABORATORY DATA: Shows potassium of 3.3, calcium 6.9, white blood cell count 13.1, hemoglobin of 8.4 , hematocrit 24.9, platelet count is 64,000. ASSESSMENT: 1. Anemia secondary to gastrointestinal blood loss. 2. Thrombocytopenia - consumption. 3. Duodenal ulcer, not amenable to endoscopic therapy, status post surgical intervention. RECOMMENDATIONS: 1. Continue to monitor H&H. 2. Continue Protonix drip.
--- NOTE | 2017-02-25 13:11 | PDOC.PN ---
- Subjective Encounter Start Date: 02/25/17 Encounter Start Time: 13:09 Patient seen and examined, no family at bedside, patient states her pain is better now, no other complaints. All questions answered. - Objective Vital Signs & Weight: Vital Signs (12 hours) Temp Pulse Resp BP Pulse Ox 02/25/17 12:00 97.9 F 72 19 118/72 99 02/25/17 08:00 97.9 F 83 19 95/65 100 02/25/17 04:44 97.9 F 70 16 126/77 99 Weight Admit Weight 141 lb 9.808 oz Weight 129 lb 3.054 oz Most Recent Monitor Data Heart Rate from ECG 70 NIBP 140/74 NIBP BP-Mean 116 Respiration from ECG 12 SpO2 100 I&O: 02/24/17 02/25/17 02/26/17 06:59 06:59 06:59 Intake Total 260 1124.2 Output Total 975 2540 Balance -715 -1415.8 Result Diagrams: 02/25/17 05:38 02/25/17 05:38 Phys Exam - Physical Examination Constitutional: NAD HEENT: PERRLA, moist MMs, sclera anicteric NG tube in place Neck: no nodes, no JVD, supple Respiratory: no wheezing, no rales, no rhonchi Cardiovascular: RRR, no significant murmur Gastrointestinal: soft, non-tender surgicla site C/D/I Musculoskeletal: no edema, pulses present Neurological: non-focal, normal sensation Psychiatric: normal affect, A&O x 3 Dx/Plan (1) Bleeding duodenal ulcer Code(s): K26.4 - CHRONIC OR UNSPECIFIED DUODENAL ULCER WITH HEMORRHAGE Status : Acute (2) S/P exploratory laparotomy Status: Acute (3) Abdominal pain Code(s): R10.9 - UNSPECIFIED ABDOMINAL PAIN Status: Acute (4) Anemia Code(s): D64.9 - ANEMIA, UNSPECIFIED Status: Acute - Plan * s/p ex lap, surgery following * cont tube feeds via NG tube * Hgb stable for now * monitor for GI bleeding * vital signs stable * case and plan d/w patient at length, she understands and agrees with this plan
--- NOTE | 2017-02-25 17:05 | PRG ---
DATE OF SERVICE: 02/25/2017 SUBJECTIVE: Ms. Elias is a 67-year-old woman who is postoperative day #1 status post exploratory l aparotomy and oversew of bleeding duodenal ulcer. The patient is awake and alert on my evaluation. She reports adequate pain control. She denies any dyspnea or syncope. She has had no bloody bowel m ovements overnight. OBJECTIVE: VITAL SIGNS: This morning includes blood pressure 126/77, pulse 70, respirations 16, temperature 98. 2 degrees Fahrenheit, oxygen saturation is 99% on room air. HEENT: Reveals normocephalic and atraumatic. HEART: Reveals regular rate and rhythm. No murmurs or gallops auscultated. LUNGS: Clear to auscultation bilaterally. CARDIOVASCULAR: Breathing is regular and unlabored. ABDOMEN: Soft. Incision intact with incisional tenderness present. No gross rebound tenderness pre sent. Yrn-Montoya drain returns 170 mL of serosanguineous fluid over the last 24 hours. NEUROLOGIC: Reveals no focal deficits present. LABORATORY DATA: Pertinent laboratory findings today includes CBC with 13,100 white blood cells, hem oglobin and hematocrit stable at 8.4 and 24.9 respectively, platelet count is 64,000. Note, the usman ent has not received any blood transfusion since surgery. Metabolic profile today includes a sodium of 137, potassium is 3.3, chloride is 106, bicarbonate 28, BUN 19, creatinine 0.76, glucose 86. IMPRESSION: 1. Postoperative day #1 status post exploratory laparotomy with oversew of bleeding duodenal ulcer. 2. Acute blood loss anemia, stable. No clinical evidence of ongoing hemorrhage. PLAN: Increase activity as tolerated. The patient may be allowed to take some clear liquid diet onc e she starts to pass flatus indicating return of bowel function. The above findings and plan discussed with the patient who indicates understanding of information giv en. I have answered her questions.
--- NOTE | 2017-02-25 23:42 | PRG ---
DATE OF SERVICE: 02/25/2017 SUBJECTIVE: Olive Elias is a 67-year-old female status post operative repair of bleeding ulcer. T he patient has not yet had return of bowel function. Tube feeds were increased earlier today. The p atient denies any nausea or vomiting. She does admit to some anxiety. Otherwise, no complaints. OBJECTIVE: VITAL SIGNS: Reviewed and stable. GENERAL: The patient is afebrile, resting in bed, in no acute distress. LUNGS: Breathing is nonlabored. ABDOMEN: Soft, nontender, nondistended. No signs of peritonitis. ASSESSMENT AND PLAN: As documented in daily progress note. Continue care as ordered. Continue to m onitor.
[2017-02-26 07:28] LABS: Hemoglobin 9.2 g/dL (12.0-16.0); Mean Corpuscular HGB CONC 34.5 g/dL (32.0-36.0); Mean Corpuscular Hemoglobin 31.9 pg (27.0-31.0); Mean Corpuscular Volume 92.5 fl (81.0-99.0); Mean Platelet Volume 8.7 fL (7.4-10.4); Platelet Count 65 thou/uL (130-400); RBC Distribution Width 13.5 % (11.5-14.5); Red Blood Cell (RBC) Count 2.89 mill/uL (4.20-5.40); White Blood Cell (WBC) Count 5.7 thou/uL (4.8-10.8)
[2017-02-26 08:12] LABS: Band 32 % (5-11); Eosinophils 1 % (0-10); Lymphocytes 15 % (21-51); MDiff Complete? YES; Metamyelocyte 1 % (0-0); Monocytes 1 % (0-10); Neutrophil 48 % (42-75); PLT Morphology Comment Appears Decreased; Reactive Lymphocytes 2 % (0-10); Toxic Granulation SLIGHT
[2017-02-26 10:15] LABS: Phosphorus 1.8 mg/dL (2.3-4.7)
[2017-02-26] MEDS ORDERED: Magnesium Sulfate 4 GM in Sodium Chloride 0.9% 250 ML 250 ML IVPB SCH (12:00)
[2017-02-26] MEDS ORDERED: Potassium Phosphate 30 MMOL in Sodium Chloride 0.9% 250 ML 250 ML IVPB SCH (12:00)
--- NOTE | 2017-02-26 12:07 | PDOC.PN ---
- Subjective Encounter Start Date: 02/26/17 Encounter Start Time: 08:10 -: old records requested/rev Patient seen and examined. No new complaints. No overnight events - Objective Resuscitation Status: Resuscitation Status FULL:Full Resuscitation MAR Reviewed: Yes Vital Signs & Weight: Vital Signs (12 hours) Temp Pulse Resp BP Pulse Ox 02/26/17 08:00 97.6 F 95 20 124/80 97 02/26/17 04:00 98.3 F 92 16 141/85 H 95 02/26/17 00:56 95 Weight Admit Weight 141 lb 9.808 oz Weight 129 lb 3.054 oz Most Recent Monitor Data Heart Rate from ECG 70 NIBP 140/74 NIBP BP-Mean 116 Respiration from ECG 12 SpO2 100 I&O: 02/25/17 02/26/17 02/27/17 06:59 06:59 06:59 Intake Total 1124.2 2375 Output Total 2540 880 Balance -1415.8 1495 Result Diagrams: 02/26/17 06:15 02/25/17 05:38 Phys Exam - Physical Examination Constitutional: NAD HEENT: PERRLA, moist MMs, sclera anicteric dubhuff tube+ Neck: no JVD, supple Respiratory: no wheezing, no rales, no rhonchi Cardiovascular: RRR, no significant murmur, no rub Gastrointestinal: soft, non-tender, no distention, positive bowel sounds surgical site with dressing Musculoskeletal: no edema, pulses present Neurological: non-focal, normal sensation, moves all 4 limbs Lymphatic: no nodes Psychiatric: normal affect, A&O x 3 Skin: no rash, normal turgor Dx/Plan (1) Abdominal pain Code(s): R10.9 - UNSPECIFIED ABDOMINAL PAIN Status: Resolved (2) Anemia due to acute blood loss Code(s): D62 - ACUTE POSTHEMORRHAGIC ANEMIA Status: Acute (3) Bleeding duodenal ulcer Code(s): K26.4 - CHRONIC OR UNSPECIFIED DUODENAL ULCER WITH HEMORRHAGE Status : Acute Comment: s/p surgicla repair (4) Hypomagnesemia Code(s): E83.42 - HYPOMAGNESEMIA Status: Acute (5) Ileus following gastrointestinal surgery Code(s): K91.30 - POSTPROC INTESTINAL OBST, UNSP TO PARTIAL VERSUS COMPLETE Status: Acute (6) Lactic acidosis Code(s): E87.2 - ACIDOSIS Status: Acute (7) S/P exploratory laparotomy Status: Acute (8) Thrombocytopenia Code(s): D69.6 - THROMBOCYTOPENIA, UNSPECIFIED Status: Acute (9) Anxiety and depression Code(s): F41.8 - OTHER SPECIFIED ANXIETY DISORDERS Status: Chronic (10) Dyslipidemia Code(s): E78.5 - HYPERLIPIDEMIA, UNSPECIFIED Status: Chronic (11) H/O malignant neoplasm of breast Code(s): Z85.3 - PERSONAL HISTORY OF MALIGNANT NEOPLASM OF BREAST Status: Chronic (12) Hypothyroidism Code(s): E03.9 - HYPOTHYROIDISM, UNSPECIFIED Status: Chronic (13) NSAID long-term use Code(s): Z79.1 - FDC (CURRENT) USE OF NON-STEROIDAL NON-INFLAM (NSAID) Status: Chronic (14) Neutrophilic leukemoid reaction Code(s): D72.823 - LEUKEMOID REACTION Status: Resolved Comment: due to nulesta - Plan cont current plan of care, plan discussed w/ family * continue tube feeding as tolerated * continue [employer] * continue IV protonix * await GI function to return * continue post operative care * medication reviewed as below * symptomatic treatment. Review of Systems - Review of Systems ENT: negative: Ear Pain, Ear Discharge, Nose Pain, Nose Discharge, Nose Congestion, Mouth Pain, Mouth Swelling, Throat Pain, Throat Swelling, Other Respiratory: negative: Cough, Dry, Shortness of Breath, Hemoptysis, SOB with Excertion, Pleuritic Pain, Sputum, Wheezing Cardiovascular: negative: chest pain, palpitations, orthopnea, paroxysmal nocturnal dyspnea, edema, light headedness, other Gastrointestinal: negative: Nausea, Vomiting, Abdominal Pain, Diarrhea, Constipation, Melena, Hematochezia, Other Genitourinary: negative: Dysuria, Frequency, Incontinence, Hematuria, Retention , Other Musculoskeletal: negative: Neck Pain, Shoulder Pain, Arm Pain, Back Pain, Hand Pain, Leg Pain, Foot Pain, Other Skin: negative: Rash, Lesions, Montrell, Bruising, Other - Medications/Allergies Allergies/Adverse Reactions: Allergies Allergy/AdvReac Type Severity Reaction Status Date / Time metaxalone [From Skelaxin] Allergy Verified 02/24/17 04:25 Medications: Current Medications Acetaminophen (Tylenol) 650 mg PO Q4H PRN PRN Reason: Headache/Fever or Pain Diphenhydramine HCl (Benadryl) 25 mg IVP Q3H PRN PRN Reason: Itching Diphenhydramine HCl (Benadryl) 25 mg PO Q3H PRN PRN Reason: Itching Diphenhydramine HCl (Benadryl) 25 mg IM Q3H PRN PRN Reason: Itching Hydromorphone HCl (Dilaudid Cadd) 0 mg IVPB INF PRN PRN Reason: Pain Last Admin: 02/24/17 17:13 Dose: 10 mg Pantoprazole Sodium 80 mg/ (Sodium Chloride) 100 mls @ 10 mls/hr IVP INF ROBBIE Last Admin: 02/25/17 22:36 Dose: 100 mls Sodium Chloride (Normal Saline 0.9%) 1,000 mls @ 50 mls/hr IV .Q20H ROBBIE Last Admin: 02/25/17 21:16 Dose: 1,000 mls Magnesium Sulfate 4 gm/ Sodium (Chloride) 258 mls @ 86 mls/hr IVPB NOW ROBBIE Stop: 02/26/17 16:00 Potassium Phosphate 30 mmol/ (Sodium Chloride) 260 mls @ 62.5 mls/hr IVPB NOW ROBBIE Stop: 02/26/17 17:00 Naloxone HCl (Narcan) 0.2 mg IV Q5MIN PRN PRN Reason: Opiate Reversal Ondansetron HCl (Zofran) 4 mg IVP Q6H PRN PRN Reason: Nausea/Vomiting Last Admin: 02/25/17 15:55 Dose: 4 mg Promethazine HCl (Phenergan) 12.5 mg IM Q4H PRN PRN Reason: Nausea/Vomiting Zolpidem Tartrate (Ambien) 5 mg PO HSPRN PRN PRN Reason: Insomnia
--- NOTE | 2017-02-26 12:46 | PRG ---
DATE OF SERVICE: 02/26/2017 SUBJECTIVE: The patient is feeling better. She is still having no flatus or bowel movements. She i s having some abdominal pain. She is having no nausea and vomiting. She is anxious to get up and wa lk and she is presently waiting for physical therapy. OBJECTIVE: VITAL SIGNS: Temperature 97.6, pulse 95, respiratory rate 20, blood pressure 124/80. CHEST: Clear. CARDIOVASCULAR: Regular rate and rhythm. ABDOMEN: Tender. She has a bandage to abdomen. LABORATORY DATA: Show white blood cell count of 57, hemoglobin 9.2, and hematocrit 26.7. ASSESSMENT: 1. Duodenal ulcer. 2. Upper gastrointestinal bleed. 3. Anemia secondary to upper gastrointestinal bleed. RECOMMENDATIONS: 1. Continue postop management. 2. Continue Protonix. 3. No NSAIDs. 4. We will follow at a distance.
--- NOTE | 2017-02-26 17:22 | PRG ---
DATE OF SERVICE: 02/26/2017 SUBJECTIVE: The patient is postop day #2 status post exploratory laparotomy and oversew of bleeding duodenal ulcer. The patient had no issues overnight. She remains n.p.o. with the exception of some ice chips and has tube feeds running at 20 mL per hour. The patient states that her pain is controll ed and she has been out of bed to be in the chair and she could ambulate back and forth to the restro om. Unfortunately, she has not passed any flatus. The patient states that her pain is controlled. PHYSICAL EXAMINATION: VITAL SIGNS: Temperature is 97.6, heart rate 95, blood pressure 124/80, respirations 20, oxygen satu ration 97% on room air. HEENT: Unremarkable. LUNGS: Clear to auscultation bilaterally. HEART: Regular rate and rhythm. ABDOMEN: Soft with clean, dry, and intact dressing. She has minimal tenderness. FERNANDO drain has put o ut a total of 115 mL of serosanguineous fluid over the past 24 hours. Bowel sounds are hypoactive. EXTREMITIES: Neurovascularly intact x4. LABORATORY DATA AND IMAGING DATA: White blood cell count 5.7, hemoglobin 9.2, hematocrit 26.7, and p latelets 65. Magnesium 1.0, phosphorus 1.8. The remainder of her basic metabolic panel is not back. There are no radiographs to review this morning. ASSESSMENT AND PLAN: 1. Status post exploratory laparotomy with oversew of bleeding ulcer. 2. Acute blood loss anemia, which is stable. Plan will be to continue to increase her activity, riley it bowel function return. With the hypoactive bowel sounds, we believe this may be relatively soon. Otherwise, we will continue supportive care as previous.
--- NOTE | 2017-02-26 21:37 | PRG ---
DATE OF SERVICE: 02/26/2017 SUBJECTIVE: Olive Elias is a 67-year-old female status post repair of duodenal ulcer bleeding, had an exploratory laparotomy. Patient is currently awaiting return of bowel function. She is n.p.o. w ith ice chips. She vocalizes no complaints upon my evaluation. OBJECTIVE: VITAL SIGNS: Reviewed and stable. GENERAL: Sitting in chair, out of bed. LUNGS: Breathing is nonlabored. ABDOMEN: Soft with mild generalized tenderness. No guarding, rigidity, or signs of peritonitis. ASSESSMENT AND PLAN: As documented in daily progress note. Continue care as ordered. Continue to m onitor. Await return of bowel function.
[2017-02-27] MEDS: Pantoprazole 80 MG in Sodium Chloride 0.9% 100 ML IVP SCH (05:28)
[2017-02-27 06:48] LABS: Hemoglobin 8.7 g/dL (12.0-16.0); Mean Corpuscular HGB CONC 34.1 g/dL (32.0-36.0); Mean Corpuscular Hemoglobin 31.7 pg (27.0-31.0); Mean Platelet Volume 8.8 fL (7.4-10.4); Platelet Count 50 thou/uL (130-400); RBC Distribution Width 13.5 % (11.5-14.5); Red Blood Cell (RBC) Count 2.73 mill/uL (4.20-5.40); White Blood Cell (WBC) Count 2.8 thou/uL (4.8-10.8)
[2017-02-27 07:15] LABS: ALT (SGPT) 17 U/L (8-55); AST (SGOT) 27 U/L (5-34); Albumin 3.2 g/dL (3.4-4.8); Alkaline Phosphatase 71 U/L (40-150); Anion Gap 10 mmol/L (10-20); BUN (Urea Nitrogen) 18 mg/dL (9.8-20.1); Bilirubin, Total 0.8 mg/dL (0.2-1.2); Calc. Creatinine Clearance 68 mL/min (70-130); Calcium 8.4 mg/dL (7.8-10.44); Carbon Dioxide 26 mmol/L (23-31); Chloride 105 mmol/L (98-107); Estimated GFR-MDRD 80; Globulin 2.2 g/dL (2.4-3.5); Glucose 119 mg/dL (80-115); Magnesium 1.8 mg/dL (1.6-2.6); Phosphorus 3.3 mg/dL (2.3-4.7); Protein, Total 5.4 g/dL (6.0-8.3); Sodium 138 mmol/L (136-145)
[2017-02-27] MEDS: Sodium Chloride 0.9% 1,000 ML IV SCH (07:20)
[2017-02-27 07:39] LABS: Band 23 % (5-11); Dohle Bodies SLIGHT; Lymphocytes 23 % (21-51); MDiff Complete? YES; Monocytes 8 % (0-10); Neutrophil 46 % (42-75); Nucleated RBC 2 % (0); PLT Morphology Comment Appears Decreased; Polychromasia SLIGHT = 2-3 cells (100X) (0-2/hpf)
[2017-02-27] MEDS ORDERED: Potassium Chloride 20 MEQ/100 ML PREMIX BAG IVPB SCH (07:45)
[2017-02-27] MEDS ORDERED: Magnesium Sulfate 4 GM, Potassium Chloride 40 MEQ in Sodium Chloride 0.9% 250 ML 250 ML IVPB SCH (08:15)
[2017-02-27] MEDS ORDERED: traMADol HCl 50 MG TAB PO PRN (10:04)
--- NOTE | 2017-02-27 10:28 | PDOC.PN ---
- Subjective Encounter Start Date: 02/27/17 Encounter Start Time: 08:15 Patient seen and examined. No new complaints. No overnight events pt is passing gas, pain controlled - Objective Resuscitation Status: Resuscitation Status FULL:Full Resuscitation MAR Reviewed: Yes Vital Signs & Weight: Vital Signs (12 hours) Temp Pulse Resp BP Pulse Ox 02/27/17 08:30 97.6 F 98 20 159/90 H 98 02/27/17 07:30 97.6 F 98 20 02/27/17 03:42 97.8 F 103 H 16 138/86 98 02/27/17 00:00 98 F 90 16 130/72 98 Weight Admit Weight 141 lb 9.808 oz Weight 129 lb 3.054 oz Most Recent Monitor Data Heart Rate from ECG 70 NIBP 140/74 NIBP BP-Mean 116 Respiration from ECG 12 SpO2 100 I&O: 02/26/17 02/27/17 02/28/17 06:59 06:59 06:59 Intake Total 2375 90 Output Total 880 65 Balance 1495 25 Result Diagrams: 02/27/17 06:23 02/27/17 06:23 Phys Exam - Physical Examination Constitutional: NAD HEENT: PERRLA, moist MMs, sclera anicteric dubhuff tube+ Neck: no JVD, supple Respiratory: no wheezing, no rales, no rhonchi Cardiovascular: RRR, no significant murmur, no rub Gastrointestinal: soft, non-tender, no distention, positive bowel sounds surgical site with dressing Musculoskeletal: pulses present, edema present trace edema Neurological: non-focal, normal sensation Psychiatric: normal affect, A&O x 3 Skin: no rash, normal turgor Dx/Plan (1) Abdominal pain Code(s): R10.9 - UNSPECIFIED ABDOMINAL PAIN Status: Resolved (2) Anemia due to acute blood loss Code(s): D62 - ACUTE POSTHEMORRHAGIC ANEMIA Status: Acute (3) Bleeding duodenal ulcer Code(s): K26.4 - CHRONIC OR UNSPECIFIED DUODENAL ULCER WITH HEMORRHAGE Status : Acute Comment: s/p surgicla repair (4) Hypomagnesemia Code(s): E83.42 - HYPOMAGNESEMIA Status: Acute (5) Ileus following gastrointestinal surgery Code(s): K91.30 - POSTPROC INTESTINAL OBST, UNSP TO PARTIAL VERSUS COMPLETE Status: Acute (6) Lactic acidosis Code(s): E87.2 - ACIDOSIS Status: Acute (7) S/P exploratory laparotomy Status: Acute (8) Thrombocytopenia Code(s): D69.6 - THROMBOCYTOPENIA, UNSPECIFIED Status: Acute (9) Anxiety and depression Code(s): F41.8 - OTHER SPECIFIED ANXIETY DISORDERS Status: Chronic (10) Dyslipidemia Code(s): E78.5 - HYPERLIPIDEMIA, UNSPECIFIED Status: Chronic (11) H/O malignant neoplasm of breast Code(s): Z85.3 - PERSONAL HISTORY OF MALIGNANT NEOPLASM OF BREAST Status: Chronic (12) Hypothyroidism Code(s): E03.9 - HYPOTHYROIDISM, UNSPECIFIED Status: Chronic (13) NSAID long-term use Code(s): Z79.1 - GROUP HOME (CURRENT) USE OF NON-STEROIDAL NON-INFLAM (NSAID) Status: Chronic (14) Neutrophilic leukemoid reaction Code(s): D72.823 - LEUKEMOID REACTION Status: Resolved Comment: due to nulesta - Plan cont current plan of care, plan discussed w/ family, PT/OT * 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 Review of Systems - Review of Systems ENT: negative: Ear Pain, Ear Discharge, Nose Pain, Nose Discharge, Nose Congestion, Mouth Pain, Mouth Swelling, Throat Pain, Throat Swelling, Other Respiratory: negative: Cough, Dry, Shortness of Breath, Hemoptysis, SOB with Excertion, Pleuritic Pain, Sputum, Wheezing Cardiovascular: negative: chest pain, palpitations, orthopnea, paroxysmal nocturnal dyspnea, edema, light headedness, other Gastrointestinal: negative: Nausea, Vomiting, Abdominal Pain, Diarrhea, Constipation, Melena, Hematochezia, Other Genitourinary: negative: Dysuria, Frequency, Incontinence, Hematuria, Retention , Other Musculoskeletal: negative: Neck Pain, Shoulder Pain, Arm Pain, Back Pain, Hand Pain, Leg Pain, Foot Pain, Other Skin: negative: Rash, Lesions, Montrell, Bruising, Other - Medications/Allergies Allergies/Adverse Reactions: Allergies Allergy/AdvReac Type Severity Reaction Status Date / Time metaxalone [From Skelaxin] Allergy Verified 02/24/17 04:25 Medications: Current Medications Acetaminophen (Tylenol) 650 mg PO Q4H PRN PRN Reason: Headache/Fever or Pain Acetaminophen (Tylenol) 1,000 mg PO Q6H ROBBIE Diphenhydramine HCl (Benadryl) 25 mg IVP Q3H PRN PRN Reason: Itching Diphenhydramine HCl (Benadryl) 25 mg PO Q3H PRN PRN Reason: Itching Diphenhydramine HCl (Benadryl) 25 mg IM Q3H PRN PRN Reason: Itching Pantoprazole Sodium 80 mg/ (Sodium Chloride) 100 mls @ 10 mls/hr IVP INF ROBBIE Last Admin: 02/27/17 05:28 Dose: 100 mls Magnesium Sulfate 4 gm/Potassium Chloride 40 meq/Sodium Chloride 278 mls @ 69.5 mls/hr IVPB NOW ROBBIE Stop: 02/27/17 12:15 Last Admin: 02/27/17 09:03 Dose: 278 mls Naloxone HCl (Narcan) 0.2 mg IV Q5MIN PRN PRN Reason: Opiate Reversal Ondansetron HCl (Zofran) 4 mg IVP Q6H PRN PRN Reason: Nausea/Vomiting Last Admin: 02/25/17 15:55 Dose: 4 mg Pantoprazole Sodium (Protonix) 40 mg PO BID ROBBIE Tramadol HCl (Ultram) 50 mg PO Q6H PRN PRN Reason: Pain Tramadol HCl (Ultram) 50 mg PO Q6H ROBBIE Zolpidem Tartrate (Ambien) 5 mg PO HSPRN PRN PRN Reason: Insomnia
[2017-02-27] MEDS: Acetaminophen 500 MG TAB PO SCH ×2 (11:32→17:15)
[2017-02-27] MEDS: traMADol HCl 50 MG TAB PO SCH ×2 (11:32→17:16)
[2017-02-27 13:12] VITALS: BMI 28.9
--- NOTE | 2017-02-27 14:56 | PRG ---
DATE OF SERVICE: 02/27/2017 SUBJECTIVE: Ms. Elias is awake and alert today. She is postop day #3 status post exploratory lapa rotomy with oversew of bleeding duodenal ulcer. She reports adequate pain control. She is passing flatus, but denies any bowel movements since surge ry. She is tolerating tube feeds. OBJECTIVE: VITAL SIGNS: Today includes blood pressure 159/90, pulse is 98, respiratory rate is 20, temperature is 97.6 degrees Fahrenheit, oxygen saturation is 98% on room air. HEENT: Reveals normocephalic and atraumatic. HEART: Reveals regular rate and rhythm, no murmurs or gallops auscultated. LUNGS: Clear to auscultation bilaterally. Her breathing is regular and unlabored. ABDOMEN: Soft with incisional tenderness to palpation. She has no gross rebound tenderness present. The incisions remain intact and healing. Yrn-Montoya drain returned 65 mL of serous fluid. PERTINENT LABORATORY DATA: Today includes metabolic profile: Sodium 138, potassium 3.0, chloride is 105, bicarbonate 26, BUN 18, creatinine 0.72, glucose is 119, total bilirubin 0.8, AST and ALT 27 an d 17 respectively. Serum lipase is 1.5. Magnesium is 1.8, and phosphorus is 3.3. IMPRESSION: 1. Postop day #3, status post exploratory laparotomy and oversew of duodenal bleeding ulcer. 2. Acute hypokalemia. 3. Acute hypomagnesemia. PLAN: 1. Correct abnormal electrolytes. 2. Nasojejunal tube as well as tube feeds will be discontinued and patient will be started on clear liquid diet. She will be saline locked and pain management will be provided orally. 3. We will increase activity per physical and occupational therapy. Above findings and plan discussed with the patient who indicates understanding of the information giv en. I have answered all her questions.
[2017-02-28] MEDS: traMADol HCl 50 MG TAB PO SCH ×3 (00:38→11:49)
[2017-02-28] MEDS: Acetaminophen 500 MG TAB PO SCH ×3 (00:38→11:48)
[2017-02-28 04:02] VITALS: TEMP 98.3
[2017-02-28 09:07] VITALS: BP 134/75
--- NOTE | 2017-02-28 13:49 | DIS ---
DATE OF ADMISSION: 02/24/2017 DATE OF DISCHARGE: 02/28/2017 ADMITTING PHYSICIAN: Dr. Martinez Alvarez, [facility]. CONSULTANTS: Dr. Juan C Velarde, General Surgery, Dr. Morgan Loco, Gastroenterology, Dr. Chavo Page with Oncology. DIAGNOSIS ON ADMISSION: Upper gastrointestinal hemorrhage. DIAGNOSES ON DISCHARGE: 1. Upper gastrointestinal hemorrhage. 2. Bleeding duodenal ulcer. 3. Acute hemorrhagic shock. OPERATIONS PERFORMED: 1. Exploratory laparotomy. 2. Oversew of bleeding duodenal ulcer with Santiago patch. Surgery was on 02/24/2017. Please see sep arate dictation for the operative report. HISTORY AND HOSPITAL COURSE: A 67-year-old woman with history of breast carcinoma presented on 02/24 following a near fall associated with upper gastrointestinal hemorrhage and hemorrhagic shock. The patient was seen emergently by Dr. Morgan Loco with Gastroenterology and underwent an emergent en doscopy. A second portion duodenal ulcer bleed was suspected, but the ulcer base was not visible. The patient was being resuscitated with massive transfusion protocol and emergent surgical interventi on was warranted. The patient was taken to the operating room for exploratory laparotomy where a ble eding duodenal ulcer was oversewed. Following surgery, the patient was admitted to the Intensive Car e Unit where she had an uneventful 24 hours. She was subsequently transferred to [facility] where she remained until the time of discharge. Remainder of her hospital course has been essentially uneventful. She received 1 unit of packed red blood cells immediately postoperatively and since then has required no further transfusions. She was placed on Protonix by continuous infusion which was ultimately converted to p.o. Protonix within e last 24 hours. She is currently tolerating a general diet, having normal bowel and urinary functio n. The pain is adequately controlled on oral analgesics. Yrn-Montoya drain has since been removed . Incisional wound today is intact, clean and dry and healing. VITAL SIGNS: Today includes blood pressure 134/75, pulse 90, respiratory rate 14. Maximum temperatu re in the last 24 hours is 98.3 degrees Fahrenheit. Oxygen saturation is 98% on room air. The patient has maximized hospital benefit and will therefore be discharged home today with the carl apodaca instructions: 1. She is to follow up with me in the Surgery Clinic in 10 days at which time smitha will be remove d. 2. She is given a prescription for Protonix 40 mg #60 to be taken 1 p.o. b.i.d. with 1 refill. 3. She was also given a prescription for tramadol 50 mg #30 to be taken 1-2 p.o. q.6h. p.r.n. pain w ith 1 refill. 4. She is instructed to resume all her prehospitalization medications as I have reviewed excluded di clofenac. 5. I have also instructed the patient to avoid all NSAIDs as this more than likely was the etiology of her upper gastrointestinal hemorrhage. 6. She is to follow up with her oncologist routine appointment as indicated. 7. She is to call me with any questions or problems including exacerbation of abdominal pain, intole luba of oral intake, any further bleeding or abnormal drainage from the incisional wound itself. 8. The patient is also instructed to avoid weightlifting in excess of 20 pounds until she has been r eleased by me. These instructions were given to the patient in the presence of her nurse. She indicated understandi ng of information provided. I have answered her questions. The patient has expressed deep gratitude for the care rendered to her during this hospitalization and surgery.
== END 2017-02-28 12:44 | disposition home or self-care (01) | DRG 356 ==
LOC: ERS 17:22 → SDC 22:50 → SURG B 23:08 → SDC 02-24 02:28 → CCU 02-24 03:22 → SURG B 02-24 23:06
PROVIDERS: ADMIT Internal Medicine; ATTEND Internal Medicine
PROC: 30233N1 Transfusion of Nonautologous Red Blood Cells into Peripheral Vein, Percutaneous Approach (ICD-10-PCS; 2017-02-23)
PROC: 30233K1 Transfusion of Nonautologous Frozen Plasma into Peripheral Vein, Percutaneous Approach (ICD-10-PCS; 2017-02-23)
PROC: 0DJ08ZZ Inspection of Upper Intestinal Tract, Via Natural or Artificial Opening Endoscopic (ICD-10-PCS; 2017-02-23)
PROC: 0W3P0ZZ Control Bleeding in Gastrointestinal Tract, Open Approach (ICD-10-PCS; principal; 2017-02-24)
PROC: 0W9G00Z Drainage of Peritoneal Cavity with Drainage Device, Open Approach (ICD-10-PCS; 2017-02-24)
PROC: 0DHA3UZ Insertion of Feeding Device into Jejunum, Percutaneous Approach (ICD-10-PCS; 2017-02-24)
DX: K26.4 Chronic or unspecified duodenal ulcer with hemorrhage (principal); R57.8 Other shock; E87.2 Acidosis; D69.6 Thrombocytopenia, unspecified; E83.42 Hypomagnesemia; K56.7 Ileus, unspecified; D62 Acute posthemorrhagic anemia; E78.5 Hyperlipidemia, unspecified; E87.6 Hypokalemia; M06.9 Rheumatoid arthritis, unspecified; E03.9 Hypothyroidism, unspecified; Z17.0 Estrogen receptor positive status [ER+]; C50.411 Malignant neoplasm of upper-outer quadrant of right female breast; F41.8 Other specified anxiety disorders; Z79.1 Long term (current) use of non-steroidal anti-inflammatories (NSAID); D72.823 Leukemoid reaction; T45.8X5A Adverse effect of other primarily systemic and hematological agents, initial encounter
CPT/HCPCS: 36415; 36416; 36430; 71045; 74018; 74174; 80048; 80053; 82248; 82274; 82553; 83010; 83605; 83615; 83690; 83735; 84100; 84484; 84550; 85025; 85060; 85384; 85610; 85730; 86850; 86900; 86901; 87040; 87045; 87046; 87324; 87449; 87899; 90471; 90682; 93005; 96361; 96365; 96375; 96376; C9113; G0008; G8978-GP-CL; G8979-GP-CJ; G8987-GO-CI; G8988-GO-CI; J0131; J1100; J1956; J2001; J2060; J2270; J2405; J2704; J3010; J3475; J3480; J7050; P9012; P9016; P9035; P9048; P9059; Q2036

== ENCOUNTER 2017-03-14 10:58 | Day surgery (SDC) | payer MEDICARE ==
[2017-03-14] MEDS ORDERED: Acetaminophen 500 MG TAB PO SCH (13:45)
[2017-03-14] MEDS ORDERED: diphenhydrAMINE 25 MG CAP PO SCH (13:45)
[2017-03-14 19:28] VITALS: BP 132/83; TEMP 97.6
[2017-03-14 19:52] LABS: #Basophils 0.1 thou/uL (0.0-0.2); #Eosinphils 0.1 thou/uL (0.0-0.7); #Lymphocytes 3.3 thou/uL (1.20-3.40); #Monocytes 1.1 thou/uL (0.11-0.59); #Neutrophils 4.9 thou/uL (1.40-6.50); %Basophils 0.8 % (0.0-1.0); %Eosinophils 1.2 % (0.0-10.0); %Lymphocytes 34.4 % (21.0-51.0); %Monocytes 11.5 % (0.0-10.0); %Neutrophils 52.2 % (42.0-75.0); Hemoglobin 10.6 g/dL (12.0-16.0); Mean Corpuscular HGB CONC 33.9 g/dL (32.0-36.0); Mean Corpuscular Hemoglobin 31.4 pg (27.0-31.0); Mean Corpuscular Volume 92.6 fl (81.0-99.0); Mean Platelet Volume 6.6 fL (7.4-10.4); Platelet Count 367 thou/uL (130-400); RBC Distribution Width 14.9 % (11.5-14.5); Red Blood Cell (RBC) Count 3.39 mill/uL (4.20-5.40); White Blood Cell (WBC) Count 9.5 thou/uL (4.8-10.8)
== END 2017-03-14 19:35 | disposition home or self-care (01) ==
LOC: ONC/OP 10:58 → ONC 12:28 → ONC/OP 19:35
PROVIDERS: ATTEND Internal Medicine Medical Oncology
PROC: 30233N1 Transfusion of Nonautologous Red Blood Cells into Peripheral Vein, Percutaneous Approach (ICD-10-PCS; principal; 2017-03-14)
DX: D64.9 Anemia, unspecified (principal); D69.59 Other secondary thrombocytopenia; Z88.8 Allergy status to other drugs, medicaments and biological substances
CPT/HCPCS: 36430; 80053; 82248; 83615; 84100; 84550; 85025; 86850; 86900; 86901; P9016

== ENCOUNTER 2017-05-25 10:54 | Outpatient (CLI) | payer MEDICARE | END 2017-05-25 10:55 | disposition home or self-care (01) | LOC: BICMAMMO 10:54 | PROVIDERS: ATTEND Internal Medicine Rheumatology | DX: M81.0 Age-related osteoporosis without current pathological fracture (principal); M85.80 Other specified disorders of bone density and structure, unspecified site | CPT/HCPCS: 77080 ==

== ENCOUNTER 2017-07-06 13:27 | Outpatient (CLI) | payer MEDICARE ==
--- NOTE | 2017-07-06 16:10 | NM ---
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 RADIOPHARMACEUTICAL: 27 millicuries of technetium 99m labeled RBC cells injected intravenously. FINDINGS: The left ventricular ejection fraction measures 60%. Previous value on 03/27/17 was 57%. The left ventr icular wall motion is normal. IMPRESSION: LVEF is 60%. POS: [place]
== END 2017-07-06 13:28 | disposition home or self-care (01) ==
LOC: NM 13:27
PROVIDERS: ATTEND Internal Medicine Medical Oncology
DX: C50.411 Malignant neoplasm of upper-outer quadrant of right female breast (principal)
CPT/HCPCS: 78472; A9604

== ENCOUNTER 2017-08-01 09:03 | Outpatient (CLI) | payer MEDICARE | END 2017-08-01 09:04 | disposition home or self-care (01) | LOC: BICULT 09:03 | PROVIDERS: ATTEND Internal Medicine Hematology & Oncology | DX: N63.12 Unspecified lump in the right breast, upper inner quadrant (principal); Z90.11 Acquired absence of right breast and nipple ==

== ENCOUNTER 2017-10-15 12:43 | Outpatient (CLI) | payer MEDICARE ==
[2017-10-15] MEDS ORDERED: Heparin 1,000 UNITS/ML VIAL ONE (15:18)
--- NOTE | 2017-10-15 15:34 | NM ---
NUCLEAR MEDICINE MUGA SCAN: 10/15/2017 HISTORY: A 67-year-old female with malignant neoplasm of the upper outer quadrant of the right breast. Chemot herapy. TECHNIQUE: IV injection of 29.2 millicuries of technetium 99m tagged erythrocytes. Multigated acquisition of the left ventricle in short-axis view. FINDINGS: Left ventricular ejection fraction is 58%. This is not significantly different from the 60% value ob tained on 07/06/2017. IMPRESSION: Normal left ventricular ejection fraction of 58%. POS: [facility]
== END 2017-10-15 12:44 | disposition home or self-care (01) ==
LOC: NM 12:43
PROVIDERS: ATTEND Internal Medicine Hematology & Oncology
DX: C50.411 Malignant neoplasm of upper-outer quadrant of right female breast (principal)
CPT/HCPCS: 78472; A9604; J1644

== ENCOUNTER 2018-08-21 10:57 | Outpatient (CLI) | payer MEDICARE ==
--- NOTE | 2018-08-21 14:20 | BD ---
Exam: DEXA Bone Density 08/21/18 HISTORY: Age-related osteoporosis without current pathologic fracture. COMPARISON: DEXA scan from 2018. FINDINGS: Lumbar Spine: BMD (g/cm2) T-SCORE Z-SCORE L1 1.065 0.7 2.6 L2 1.099 0.6 2.8 L3 1.111 0.2 2.5 L4 1.143 0.7 3.0 L1-L4 1.105 0.5 2.7 WHO classification: Normal. Right Femoral Neck: 0.547 -2.7 -0.9 Total Right Femur: 0.835 -0.9 0.7 WHO classification: Osteoporosis. Impression: Osteoporosis with elevated fracture risk. Bone mineral density has decreased from the comparison exam . POS: [place]
== END 2018-08-21 10:58 | disposition home or self-care (01) ==
LOC: BICMAMMO 10:57
PROVIDERS: ATTEND Internal Medicine Rheumatology
DX: M81.0 Age-related osteoporosis without current pathological fracture (principal)
CPT/HCPCS: 77080

== ENCOUNTER 2018-11-27 10:51 | Outpatient (CLI) | payer MEDICARE | END 2018-11-27 10:52 | disposition home or self-care (01) | LOC: BICMAMMO 10:51 | PROVIDERS: ATTEND Internal Medicine Rheumatology | DX: Z53.9 Procedure and treatment not carried out, unspecified reason (principal) | CPT/HCPCS: 77080 ==

== ENCOUNTER 2019-06-17 13:55 | Outpatient (CLI) | payer MEDICARE ==
--- NOTE | 2019-06-17 14:42 | ULT ---
RIGHT BREAST ULTRASOUND: 06/17/19 HISTORY: Right breast carcinoma. Evaluation for seroma. COMPARISON: 08/01/17. FINDINGS: The previously noted fluid collection at the 10 o'clock position of the right breast is no longer se en on the current exam. No cystic or solid mass is identified at the 10 o'clock position of the right breast (site of the previous seroma). IMPRESSION: BIRADS 2: Benign Finding(s) Return to routine annual screening mammography (for women over age 40).
== END 2019-06-17 13:56 | disposition home or self-care (01) ==
LOC: BICULT 13:55
PROVIDERS: ATTEND Radiology Radiation Oncology
DX: Z08 Encounter for follow-up examination after completed treatment for malignant neoplasm (principal); Z85.3 Personal history of malignant neoplasm of breast

== ENCOUNTER 2020-06-15 13:57 | Outpatient (CLI) | payer MEDICARE | END 2020-06-15 13:58 | disposition home or self-care (01) | LOC: BICMAMMO 13:57 | PROVIDERS: ATTEND Internal Medicine Rheumatology | DX: M81.0 Age-related osteoporosis without current pathological fracture (principal) | CPT/HCPCS: 77080 ==

== ENCOUNTER 2021-06-16 13:24 | Outpatient (CLI) | payer MEDICARE | END 2021-06-16 13:25 | disposition home or self-care (01) | LOC: BICMAMMO 13:24 | PROVIDERS: ATTEND Internal Medicine Rheumatology | DX: M81.0 Age-related osteoporosis without current pathological fracture (principal) | CPT/HCPCS: 77080 ==

== ENCOUNTER 2022-06-19 13:27 | Outpatient (CLI) | payer MEDICARE | END 2022-06-19 13:28 | disposition home or self-care (01) | LOC: BICMAMMO 13:27 | PROVIDERS: ATTEND Internal Medicine Rheumatology | DX: M81.0 Age-related osteoporosis without current pathological fracture (principal); M85.80 Other specified disorders of bone density and structure, unspecified site | CPT/HCPCS: 77080 ==

== ENCOUNTER 2022-12-15 14:04 | Outpatient (CLI) | payer MEDICARE, OTHER | END 2022-12-15 14:05 | disposition home or self-care (01) | LOC: BICMAMMO 14:04 | PROVIDERS: ATTEND Radiology Radiation Oncology | DX: Z08 Encounter for follow-up examination after completed treatment for malignant neoplasm (principal); Z85.3 Personal history of malignant neoplasm of breast; Z98.890 Other specified postprocedural states | CPT/HCPCS: 76642; 77066; G0279 ==